=== PATIENT | female | born 1955 | race Caucasian/White ===

== ENCOUNTER 2017-01-18 08:14 | Emergency (ER) | payer BC ==
--- NOTE | 2017-01-18 08:18 | PDOC ---
History of Present Illness - General Stated Complaint: EMPLOYEE, SWOLLEN FINGER Time Seen by Provider: 01/18/17 08:16 History Source: Patient Exam Limitations: No Limitations - History of Present Illness Initial Comments: 01/18/17 08:17 The patient is a 61-year-old female, with no significant past medical history, who presents to the emergency department with several days of finger swelling and finger pain. The pain is maximal in the area medial to the nail bed. It is exacerbated by palpation. She denies fever, chills, sweats. She can fully flex and extend her finger at all of the joints. There is no pain if she palpates the distal finger pad. Past History - Past Medical History Allergies/Adverse Reactions: Allergies Allergy/AdvReac Type Severity Reaction Status Date / Time simvastatin [From Zocor] Allergy Severe Hives Verified 01/18/17 08:18 Sulfa (Sulfonamide Allergy Severe Rash Verified 01/18/17 08:18 Antibiotics) Home Medications: Ambulatory Orders Multivitamin [Multivitamins] 1 each PO DAILY 02/04/14 Calcium Carbonate/Vitamin D3 [Caltrate-600 with Vit D Tab] 1 each PO DAILY 05/03 Mag Carb/Al Hydrox/Alginic AC [Gaviscon Liquid] 30 ml PO ASDIR #0 oral.susp 12/13 Ubidecarenone/Vit E Acetate [Co Q-10 100 mg Softgel] 1 each PO DAILY 05/03/15 Biotin 1 mg PO DAILY 08/17/16 Metoprolol Succinate [Toprol XL -] 12.5 mg PO HS 08/17/16 Rosuvastatin Calcium [Crestor] 10 mg PO HS 08/17/16 Valacyclovir HCl [Valtrex] 1,000 mg PO PRN PRN 08/17/16 Aspirin [ASA -] 81 mg PO DAILY #0 08/21/16 Cephalexin Monohydrate [Keflex] 500 mg PO Q8H #15 capsule 01/18/17 Anemia: No Asthma: No Cancer: No Cardiac Disorders: No CVA: No COPD: No CHF: No Dementia: No Diabetes: No GI Disorders: Yes (HX OF BILE DUCT STENOSIS, REFLUX, GASTRITIS) Disorders: No HTN: No Hypercholesterolemia: Yes Liver Disease: No Seizures: No Thyroid Disease: No - Surgical History Abdominal Surgery: Yes (MALFORMATION OF INTESTINE) Appendectomy: Yes Cardiac Surgery: No Cholecystectomy: Yes (HX OF BILE DUCT STENOSIS) Lung Surgery: No Neurologic Surgery: No Orthopedic Surgery: Yes (LT SHOULDER FX) - Psycho/Social/Smoking Cessation Hx Smoking History: Current every day smoker Have you smoked in the past 12 months: No Number of Cigarettes Smoked Daily: 10 If you are a former smoker, when did you quit?: 08/2015 'Breaking Loose' booklet given: 05/03/15 Hx Alcohol Use: Yes (social) Drug/Substance Use Hx: No Substance Use Type: None Review of Systems - Review of Systems Comments:: 01/18/17 08:17 CONSTITUTIONAL: Absent: fever, chills, fatigue EYES: Absent: visual changes ENT: Absent: ear pain, sore throat CARDIOVASCULAR: Absent: chest pain, palpitations, loss of consciousness RESPIRATORY: Absent: cough, SOB GI: Absent: abdominal pain, nausea, vomiting, constipation, diarrhea GENITOURINARY: Absent: dysuria, frequency, hematuria MUSKULOSKELETAL: Absent: back pain, arthralgia, myalgia SKIN: Present: See history of present illness Absent: rash NEURO: Absent: headache, dizziness *Physical Exam - Physical Exam Comments: 01/18/17 08:18 GENERAL: Well-appearing, well-nourished. No apparent distress. HEENT: Normocephalic, atraumatic. PERRL, EOM intact. CARDIOVASCULAR: Normal S1, S2. Regular rate and rhythm. PULMONARY: Clear to auscultation bilaterally. ABDOMEN: Soft, non-distended, non-tender. EXTREMITIES: There is swelling of the finger distal to the DIP joint. The swelling is maximal in the area just medial to the proximal nailbed. There is some fluctuance in that area. No tones can be expressed with palpation. She is able to fully flex and extend that finger at all of the digits. There is no tenderness over the flexor tendons. There is no tenderness over the distal finger pad. Normal ROM in all four extremities. No gross deformities. SKIN: Warm, dry. No rash NEUROLOGICAL: No focal neurological deficits. Medical Decision Making - Medical Decision Making 01/18/17 08:23 The patient is well-appearing and in no acute distress The clinical appearance of her finger is consistent with an early paronychia There is no evidence of felon formation or of tenosynovitis 01/18/17 08:46 After the area was cleaned and prepped with dilute Betadine: Skin of the medial nail fold was lifted gently with the blunt end of an 11 blade scalpel Sevela ml of purulent fluid was expressed She had significant symptomatic relief Clinical impression: Paronychia I discussed the physical exam findings and final diagnoses with the patient. I answered all of the patient's questions. The patient was satisfied with the care received and felt comfortable with the discharge plan and treatment plan. The patient will call their primary care physician within 24 hours to arrange follow-up and will return to the Emergency Department with any new, persistent or worsening symptoms. A portion of this note was documented by scribe services under my direction. I have reviewed the details of the note, within reason, and agree with the documentation with the following case summary and management plan written by me. *DC/Admit/Observation/Transfer Diagnosis at time of Disposition: Paronychia - Discharge Dispostion Disposition: HOME Condition at time of disposition: Improved - Prescriptions Prescriptions: Cephalexin Monohydrate [Keflex] 500 mg PO Q8H #15 capsule - Referrals Referrals: Jemal Malik [Non Staff, Medical] - Call tomorrow - Patient Instructions Printed Discharge Instructions: DI for Paronychia Additional Instructions: It is very important that you soak the finger 5 times per day, for 20 minutes, and warm water. Take the antibiotic as prescribed. Return to the emergency department immediately with ANY new, persistent or worsening symptoms. You MUST call and follow up with your doctor tomorrow. Please make sure your doctor reviews the results of your emergency department evaluation.
[2017-01-18 08:26] VITALS: BP 126/79; PULSE 72; TEMP 98.3; BMI 25.7
[2017-01-18] MEDS ORDERED: CEPHALEXIN MONOHYDRATE 500 MG CAPSULE (UD) PO ONE (08:46)
[2017-01-18] MEDS ORDERED: CEPHALEXIN MONOHYDRATE 250 MG CAPSULE (FP) ONE (08:48)
== END 2017-01-18 09:15 | disposition home or self-care (01) ==
LOC: JER 08:14
PROC: 0H9QXZZ Drainage of Finger Nail, External Approach (ICD-10-PCS; principal; 2017-01-18)
DX: L03.011 Cellulitis of right finger (principal); F17.210 Nicotine dependence, cigarettes, uncomplicated; K21.9 Gastro-esophageal reflux disease without esophagitis; Z87.19 Personal history of other diseases of the digestive system; E78.00 Pure hypercholesterolemia, unspecified
CPT/HCPCS: 99281-25

== ENCOUNTER → 2020-11-23 | Day surgery (SDC) | payer BC | END | disposition home or self-care (01) | LOC: JRADIR 06:10 | PROVIDERS: ATTEND Internal Medicine Endocrinology, Diabetes & Metabolism | PROC: 0G9H3ZX Drainage of Right Thyroid Gland Lobe, Percutaneous Approach, Diagnostic (ICD-10-PCS; principal; 2020-11-23) | DX: E04.1 Nontoxic single thyroid nodule (principal) | CPT/HCPCS: 76942; 88173; 88305-TC ==

== ENCOUNTER 2022-09-05 04:38 | Day surgery (SDC) | payer BC ==
[2022-09-04 12:31] VITALS: BMI 25.9
[2022-09-05] MEDS ORDERED: FENTANYL CITRATE/PF 50 MCG/ML VIAL ONE (08:31)
[2022-09-05 09:27] VITALS: TEMP 97.3
[2022-09-05 10:19] VITALS: BP 143/78; PULSE 63; RESP 18
== END 2022-09-05 10:30 | disposition home or self-care (01) ==
LOC: JASU-ENDO 04:38
PROVIDERS: ATTEND Internal Medicine Gastroenterology
PROC: 0DB98ZX Excision of Duodenum, Via Natural or Artificial Opening Endoscopic, Diagnostic (ICD-10-PCS; 2022-09-05)
PROC: 0DB78ZX Excision of Stomach, Pylorus, Via Natural or Artificial Opening Endoscopic, Diagnostic (ICD-10-PCS; 2022-09-05)
PROC: 0DB68ZX Excision of Stomach, Via Natural or Artificial Opening Endoscopic, Diagnostic (ICD-10-PCS; 2022-09-05)
PROC: 0DJD8ZZ Inspection of Lower Intestinal Tract, Via Natural or Artificial Opening Endoscopic (ICD-10-PCS; principal; 2022-09-05 09:15)
DX: Z12.11 Encounter for screening for malignant neoplasm of colon (principal); K29.80 Duodenitis without bleeding; K29.50 Unspecified chronic gastritis without bleeding; K31.7 Polyp of stomach and duodenum; K57.30 Diverticulosis of large intestine without perforation or abscess without bleeding; K64.9 Unspecified hemorrhoids
CPT/HCPCS: 43239; G0105; 88305-TC; 88342-TC

== ENCOUNTER 2024-05-09 04:10 | Day surgery (SDC) | payer BC ==
[2024-05-08 09:18] VITALS: BMI 25.9
[2024-05-09 07:02] VITALS: RESP 20
[2024-05-09] MEDS ORDERED: TRIAMCINOLONE ACET 40MG/1ML VIAL ONE (07:19)
[2024-05-09] MEDS ORDERED: BUPIVACAINE HCL/PF 0.5% (5MG/ML) 10 ML VIAL ONE (07:19)
[2024-05-09] MEDS ORDERED: BUPIVACAINE HCL/PF 0.25% (2.5MG/ML) 10 ML VIAL ONE (07:19)
[2024-05-09] MEDS ORDERED: LIDOCAINE HCL/PF 1% SDV 5ML VIAL ONE (07:19)
[2024-05-09] MEDS: LIDOCAINE HCL 1% PRESERVATIVE FREE - 30ML VIAL IJ ONE (08:40)
[2024-05-09] MEDS: IOHEXOL 180 MG/1 ML ML IJ ONE (08:43)
[2024-05-09] MEDS: TRIAMCINOLONE ACETONIDE 40 MG/ML 10 ML VIAL IJ ONE (08:45)
[2024-05-09] MEDS: BUPIVACAINE HCL/PF 0.5% (5MG/ML) 10 ML VIAL IJ ONE (08:47)
[2024-05-09 09:31] VITALS: BP 114/72; PULSE 60; TEMP 97.5
== END 2024-05-09 09:15 | disposition home or self-care (01) ==
LOC: JASU-SURG 04:10
PROVIDERS: ATTEND Pain Medicine Pain Medicine
PROC: 3E0U3BZ Introduction of Anesthetic Agent into Joints, Percutaneous Approach (ICD-10-PCS; 2024-05-09)
PROC: 3E0U33Z Introduction of Anti-inflammatory into Joints, Percutaneous Approach (ICD-10-PCS; principal; 2024-05-09 08:40)
DX: M16.12 Unilateral primary osteoarthritis, left hip (principal)
CPT/HCPCS: 76000-TC-FY; 77002-TC-FY